=== PATIENT | female | born 1940 | race Caucasian/White ===

== ENCOUNTER 2020-06-26 18:23 | Inpatient (IN) | payer OTHER, MEDICAID, SELFPAY ==
[~2020-06-26] VITALS: Ht 172.7 cm; Wt 63.0 kg
[2020-06-26 18:30] VITALS: BP_SYST 92
[2020-06-26 19:30] LABS: HEMATOCRIT 34.3 % (36-48); HEMOGLOBIN 11.1 g/dL (12.0-16.0); LYMPHOCYTES # (AUTO) 0.2 K/uL (1.0-5.5); LYMPHOCYTES % (AUTO) 2.5 % (20.5-51.5); MEAN CORPUSCULAR HEMOGLOBIN 30 pg (27-31); MEAN CORPUSCULAR HGB CONC 32 % (32-36); MEAN CORPUSCULAR VOLUME 94 fL (79.0-98.0); MONOCYTES # (AUTO) 0.3 K/uL (0.0-1.0); MONOCYTES % (AUTO) 4.4 % (1.7-9.3); NEUTROPHILS # (AUTO) 5.8 K/uL (1.8-7.7); NEUTROPHILS % (AUTO) 93.1 % (40.0-70.0); PLATELET COUNT (AUTO) 198 K/uL (130-430); RED BLOOD CELL COUNT(AUTO) 3.66 MIL/uL (4.2-6.2); RED CELL DISTRIBUTION WIDTH 17.2 % (9.0-15.0); WHITE BLOOD COUNT (AUTO) 6.3 K/uL (4.8-10.8)
[2020-06-26 19:49] LABS: ANION GAP 13 (5-15); CALCIUM 9.6 mg/dL (8.4-11.0); CHLORIDE 105 mmol/L (98-107); CREATININE 0.74 mg/dL (0.55-1.30); POTASSIUM 4.7 mmol/L (3.5-5.1); SODIUM SERUM 142 mmol/L (136-145); UREA NITROGEN, BLOOD 39 mg/dL (8-21)
[2020-06-26 19:53] LABS: PROTHROMBIN TIME 9.6 SECS (9.5-12.5)
[2020-06-26 19:56] LABS: ALANINE AMINOTRANSFERASE 29 U/L (12-78); ALBUMIN 2.8 g/dL (3.4-4.8); ASPARTATE AMINOTRANSFERASE 22 U/L (10-37); LACTATE DEHYDROGENASE 250 U/L (81-234); TOTAL BILIRUBIN 0.5 mg/dL (0.0-1.0)
[2020-06-26 20:06] LABS: GLUCOSE 97 mg/dL (70-99)
[2020-06-26] MEDS ORDERED: cefTRIAXone 1 GM IVPB PREMIX 50 ML IV ONE (20:15)
[2020-06-26] MEDS ORDERED: NS 250 ML IV ONE (20:15)
[2020-06-26] MEDS ORDERED: AZITHROMYCIN 500 MG in NS 250 ML IV ONE (20:15)
[2020-06-26] MEDS ORDERED: AZITHROMYCIN 500 MG/VIAL (ZITHROMAX) IV ONE (20:41)
[2020-06-26 20:48] LABS: BILIRUBIN,URINE NEGATIVE (NEGATIVE); BLOOD, URINE NEGATIVE (NEGATIVE); CLARITY/URINE CLEAR (CLEAR); COLOR,URINE YELLOW (YELLOW); GLUCOSE,URINE NEGATIVE (NEGATIVE); KETONES,URINE NEGATIVE (NEGATIVE); LEUKOCYTE ESTERASE ,URINE TRACE (NEGATIVE); NITRITE, URINE NEGATIVE (NEGATIVE); PROTEIN URINE 2+ (NEGATIVE); UROBILINOGEN,URINE 0.2 (0.2-1.0)
[2020-06-26 20:55] LABS: BACTERIA,URINE MODERATE /HPF (None Seen); RBC,URINE 0-3 /HPF (0-3)
[2020-06-26 20:56] LABS: HYALINE CASTS, URINE 0-10 /LPF (None Seen); MUCUS,URINE 2+ /LPF (None Seen)
[2020-06-26] MEDS ORDERED: ALEN70TA3 PO (21:08)
[2020-06-26] MEDS ORDERED: ASCO500T20 PO (21:08)
[2020-06-26] MEDS ORDERED: CILO100T PO (21:10)
[2020-06-26] MEDS ORDERED: DEXA6TAB5 PO (21:11)
[2020-06-26] MEDS ORDERED: BISA10SU61 RC (21:12)
[2020-06-26] MEDS ORDERED: NA P133E41 RC (21:14)
[2020-06-26] MEDS ORDERED: FLOR.1 PO (21:17)
[2020-06-26] MEDS ORDERED: LIDO113G2 TP (21:19)
[2020-06-26] MEDS ORDERED: LORA10TA7 PO (21:21)
[2020-06-26] MEDS ORDERED: MAGN500T20 PO (21:22)
[2020-06-26] MEDS ORDERED: MOM PO (21:24)
[2020-06-26] MEDS ORDERED: POLY17PO4 PO (21:26)
[2020-06-26] MEDS ORDERED: MORP15TA60 PO ×2 (21:27)
[2020-06-26] MEDS ORDERED: FAMO40TA71 PO (21:28)
[2020-06-26] MEDS ORDERED: OMEP20TA20 PO (21:28)
[2020-06-26] MEDS ORDERED: SENN8.6T19 PO (21:29)
[2020-06-26] MEDS ORDERED: ACET325T53 PO (21:30)
[2020-06-26] MEDS ORDERED: CHOL500052 PO (21:31)
[2020-06-26] MEDS ORDERED: DICL100G19 TP (21:32)
[2020-06-26] MEDS ORDERED: ZINC220T4 PO (21:33)
[2020-06-26] MEDS ORDERED: SODIUM PHOSPHATE,MONO-DIBASIC 133 ML ENEMA RC PRN (21:45)
[2020-06-26] MEDS ORDERED: *HEPARIN PER PHARMACY XX ONE (21:45)
[2020-06-26] MEDS: CHOLECALCIFEROL (VITAMIN D3) 2,000 UNIT TABLET PO SCH (21:45)
[2020-06-26] MEDS ORDERED: MAGNESIUM OXIDE 400 MG TABLET PO ONE (21:45)
[2020-06-26] MEDS ORDERED: MORPHINE SULFATE 15 MG TABLET.ER PO PRN (21:45)
[2020-06-26] MEDS ORDERED: ACETAMINOPHEN 325 MG TABLET PO PRN (21:45)
[2020-06-26] MEDS ORDERED: MILK OF MAGNESIA 30 ML UDC PO PRN (21:45)
[2020-06-26] MEDS ORDERED: POLYETHYLENE GLYCOL 3350, 17 GM/ POWD.PACK PO PRN (21:45)
[2020-06-26] MEDS ORDERED: BISACODYL 10 MG/SUPPOSITORY RC PRN (21:45)
[2020-06-26] MEDS ORDERED: SENNOSIDES 8.6 MG TABLET PO PRN (21:45)
[2020-06-26] MEDS: ASCORBIC ACID 500 MG TABLET PO SCH (21:45)
[2020-06-26] MEDS ORDERED: DICLOFENAC SODIUM 1% TP PRN (21:45)
[2020-06-26] MEDS ORDERED: ALBUTEROL MDI INHALATION 8 GM INH INH PRN (21:45)
[2020-06-26] MEDS ORDERED: HEPARIN SODIUM,PORCINE 5000 UNITS/ML VIAL IV ONE (22:15)
[2020-06-26] MEDS: AZITHROMYCIN 500 MG in NS 250 ML IV SCH (22:15)
[2020-06-26] MEDS ORDERED: HEPARIN SODIUM,PORCINE 2000 UNITS/0.4 ML BOLUS IVP PRN (22:15)
[2020-06-26] MEDS ORDERED: HEPARIN SODIUM,PORCINE 3000 UNITS/0.6 ML BOLUS IVP PRN (22:15)
[2020-06-26 23:20] VITALS: BP_SYST 111
[2020-06-27] VITALS (25 sets, daily range): BP systolic 115–184
[2020-06-27] MEDS: HEPARIN 25,000 UNITS in 250 ML PREMIX IV PRN (00:25)
[2020-06-27] MEDS: DEXAMETHASONE SOD PHOSPHATE 10 MG/ML VIAL IVP SCH ×2 (00:27→20:36)
[2020-06-27] MEDS: D5LR 1,000 ML IV SCH ×3 (00:44→17:19)
[2020-06-27 00:45] LABS: C-REACTIVE PROTEIN QUANT 17.5 mg/dL (0-0.5)
[2020-06-27] MEDS ORDERED: PIPERACILLIN/TAZOBACTAM 3.375 GM/VIAL (ZOSYN) IV ONE (00:50)
[2020-06-27] MEDS: PIPERACILLIN/TAZO 3.375/DEX-IS 50 ML IV SCH ×4 (00:55→17:17)
[2020-06-27] MEDS ORDERED: NON-FORMULARY MEDICATION (Omeprazole (Prilosec Otc) 1 TAB) PO SCH (07:00)
[2020-06-27] MEDS ORDERED: ALBUTEROL SULFATE 0.083% 2.5 MG/3 ML VIAL.NEB INH PRN (07:45)
[2020-06-27] MEDS ORDERED: LIDOCAINE TP SCH (09:00)
[2020-06-27] MEDS: CILOSTAZOL 50 MG TABLET (PLETAL) PO SCH ×2 (09:30→20:36)
[2020-06-27] MEDS: ASCORBIC ACID 500 MG TABLET PO SCH ×2 (09:30→20:35)
[2020-06-27] MEDS: FAMOTIDINE 20 MG TABLET PO SCH (09:30)
[2020-06-27] MEDS: FLUDROCORTISONE ACETATE 0.1 MG TABLET( FLORINEF) PO SCH (09:30)
[2020-06-27] MEDS: PANTOPRAZOLE SODIUM 40 MG TAB PO SCH (09:31)
[2020-06-27] MEDS: MAGNESIUM OXIDE 400 MG TABLET PO SCH ×2 (09:31→20:35)
[2020-06-27] MEDS: LORATADINE 10 MG TABLET PO SCH (09:31)
[2020-06-27] MEDS: MEGESTROL ACETATE 400 MG/10 ML UDC PO SCH (09:31)
[2020-06-27] MEDS: CHOLECALCIFEROL (VITAMIN D3) 2,000 UNIT TABLET PO SCH ×2 (09:31→20:35)
[2020-06-27] MEDS: MULTIVITS,CA,MINERALS/IRON/FA 1 TABLET PO SCH (09:31)
[2020-06-27 09:59] LABS: TOTAL IRON BIND. CAPACITY 197 ug/dL (250-450)
[2020-06-27] MEDS ORDERED: SOD FERRIC GLUC COMPLEX/SUC 125 MG in NS 100 ML IV SCH (17:30)
[2020-06-27] MEDS: ALBUTEROL SULFATE 0.083% 2.5 MG/3 ML VIAL.NEB INH SCH (20:05)
[2020-06-27] MEDS: AZITHROMYCIN 500 MG in NS 250 ML IV SCH (21:25)
[2020-06-28] VITALS (21 sets, daily range): BP systolic 71–171
[2020-06-28] MEDS: PIPERACILLIN/TAZO 3.375/DEX-IS 50 ML IV SCH ×2 (00:04→05:27)
[2020-06-28] MEDS: D5LR 1,000 ML IV SCH (02:55)
[2020-06-28] MEDS: HEPARIN 25,000 UNITS in 250 ML PREMIX IV PRN (06:11)
[2020-06-28 06:18] LABS: BASOPHILS % (AUTO) 0.1 % (0.0-2.0); LYMPHOCYTES # (AUTO) 0.2 K/uL (1.0-5.5); LYMPHOCYTES % (AUTO) 3.7 % (20.5-51.5); MEAN CORPUSCULAR HEMOGLOBIN 30 pg (27-31); MEAN CORPUSCULAR HGB CONC 33 % (32-36); MEAN CORPUSCULAR VOLUME 92 fL (79.0-98.0); MONOCYTES # (AUTO) 0.3 K/uL (0.0-1.0); MONOCYTES % (AUTO) 5.5 % (1.7-9.3); NEUTROPHILS # (AUTO) 4.9 K/uL (1.8-7.7); NEUTROPHILS % (AUTO) 90.7 % (40.0-70.0); PLATELET COUNT (AUTO) 165 K/uL (130-430); RED CELL DISTRIBUTION WIDTH 17.1 % (9.0-15.0); WHITE BLOOD COUNT (AUTO) 5.4 K/uL (4.8-10.8)
[2020-06-28] MEDS: ALBUTEROL SULFATE 0.083% 2.5 MG/3 ML VIAL.NEB INH SCH (07:00)
[2020-06-28 07:27] LABS: ALANINE AMINOTRANSFERASE 26 U/L (12-78); ALBUMIN 2.5 g/dL (3.4-4.8); ANION GAP 6 (5-15); ASPARTATE AMINOTRANSFERASE 27 U/L (10-37); CALCIUM 8.5 mg/dL (8.4-11.0); CHLORIDE 104 mmol/L (98-107); CREATININE 0.47 mg/dL (0.55-1.30); GLUCOSE 99 mg/dL (70-99); POTASSIUM 3.2 mmol/L (3.5-5.1); SODIUM SERUM 137 mmol/L (136-145); TOTAL BILIRUBIN 0.6 mg/dL (0.0-1.0); UREA NITROGEN, BLOOD 19 mg/dL (8-21)
[2020-06-28] MEDS: CILOSTAZOL 50 MG TABLET (PLETAL) PO SCH (09:00)
[2020-06-28] MEDS ORDERED: SOD FERRIC GLUC COMPLEX/SUC 125 MG in NS 100 ML IV SCH (09:00)
[2020-06-28] MEDS: LORATADINE 10 MG TABLET PO SCH (09:26)
[2020-06-28] MEDS: PANTOPRAZOLE SODIUM 40 MG TAB PO SCH (09:26)
[2020-06-28] MEDS: FAMOTIDINE 20 MG TABLET PO SCH (09:26)
[2020-06-28] MEDS: MULTIVITS,CA,MINERALS/IRON/FA 1 TABLET PO SCH (09:26)
[2020-06-28] MEDS: CHOLECALCIFEROL (VITAMIN D3) 2,000 UNIT TABLET PO SCH (09:26)
[2020-06-28] MEDS: MEGESTROL ACETATE 400 MG/10 ML UDC PO SCH (09:26)
[2020-06-28] MEDS: MAGNESIUM OXIDE 400 MG TABLET PO SCH (09:26)
[2020-06-28] MEDS: FLUDROCORTISONE ACETATE 0.1 MG TABLET( FLORINEF) PO SCH (09:26)
[2020-06-28] MEDS: ASCORBIC ACID 500 MG TABLET PO SCH (09:27)
[2020-06-28] MEDS ORDERED: ALBUTEROL MDI INHALATION 8 GM INH INH SCH (11:00)
[2020-06-28] MEDS ORDERED: NALOXONE HCL 0.4 MG/ML AMP (NARCAN) IVP PRN (12:30)
[2020-06-28] MEDS: MORPHINE I.V. DRIP 100 ML IV PRN (16:45)
[2020-06-29] VITALS (17 sets, daily range): BP systolic 47–78
[2020-06-29] MEDS: MORPHINE I.V. DRIP 100 ML IV PRN ×2 (09:18→19:02)
[2020-07-03] MEDS ORDERED: ALENDRONATE SODIUM 70 MG TABLET (FOSAMAX) PO SCH (06:00)
== END 2020-06-29 22:14 | disposition expired | DRG 871 ==
LOC: SED 18:23 → SIC 20:48 → SMU 06-29 18:40
PROVIDERS: ADMIT Internal Medicine; ATTEND Internal Medicine
PROC: 5A12012 Performance of Cardiac Output, Single, Manual (ICD-10-PCS; 2020-06-26)
PROC: XW033E5 Introduction of Remdesivir Anti-infective into Peripheral Vein, Percutaneous Approach, New Technology Group 5 (ICD-10-PCS; principal; 2020-06-28)
PROC: XW033E5 Introduction of Remdesivir Anti-infective into Peripheral Vein, Percutaneous Approach, New Technology Group 5 (ICD-10-PCS; 2020-06-29)
DX: A41.9 Sepsis, unspecified organism (principal); U07.1 COVID-19; J96.01 Acute respiratory failure with hypoxia; J12.89 Other viral pneumonia; E46 Unspecified protein-calorie malnutrition; N39.0 Urinary tract infection, site not specified; Z66 Do not resuscitate; M81.0 Age-related osteoporosis without current pathological fracture; F29 Unspecified psychosis not due to a substance or known physiological condition; D64.9 Anemia, unspecified; R41.0 Disorientation, unspecified; Z88.8 Allergy status to other drugs, medicaments and biological substances; Z68.21 Body mass index [BMI] 21.0-21.9, adult
CPT/HCPCS: 36415; 36600; 71045; 80053; 81000-TC; 82550-TC; 82607; 82728; 82803-TC; 83540-TC; 83550-TC; 83605; 83615-TC; 83880; 84484; 85025; 85379; 85384-TC; 85610-TC; 85730-TC; 86140; 86886; 86900; 86901; 87040-TC; 87081; 87086; 93005; 94640; 94760; 96365; 96367; 99285; J0456; J0696; J1100; J1644; J2270; J2543; J2916; J7050; J7060; J7120; P9017; U0003-CS